=== PATIENT | female | born 1995 | race Caucasian/White ===

== ENCOUNTER 2017-03-17 00:29 | Inpatient (IN) | payer BC, OTHER ==
[~2017-03-17] VITALS: Ht 162.6 cm; Wt 72.6 kg
--- NOTE | 2017-03-17 00:45 | NUR ---
Intake Assessment Assessment done at intake office. Patient is alert & oriented to name, place & situation. Pt is ambulatory with a steady gait. Speech is clear and audible. Pt is disheveled appears slightly anxious and is cooperative during interviews. Vitals noted B/P 130/78, PA 102, RR 18, Temp 98.1, O2Sat 98%. Pt is here for medically supervised withdrawal from polysubstance use. No seizure history noted. Pt denies any food and drug allergies. Pt did not bring any home medications. Explained to pt unit protocols. Pt verbalized understanding.
[2017-03-17 01:00] VITALS: BP 130/78
[2017-03-17] MEDS ORDERED: MAG HYDROX/AL HYDROX/SIMETH 30 ML LIQUID UDC PO PRN (01:00)
[2017-03-17] MEDS ORDERED: BUPRENORPHINE HCL 2 MG TAB.SUBL SL PRN (01:00)
[2017-03-17] MEDS ORDERED: LORAZEPAM 1 MG TABLET PO PRN ×2 (01:00)
[2017-03-17] MEDS ORDERED: DICYCLOMINE HCL 20 MG TABLET PO PRN (01:00)
[2017-03-17] MEDS ORDERED: LOPERAMIDE HCL 2 MG CAPSULE PO PRN ×2 (01:00)
[2017-03-17] MEDS ORDERED: MIRALAX 17 GM POWD.PACK PO PRN (01:00)
[2017-03-17] MEDS ORDERED: ACETAMINOPHEN 325 MG TABLET PO PRN (01:00)
[2017-03-17] MEDS ORDERED: CLONIDINE HCL 0.1 MG TABLET PO PRN (01:00)
[2017-03-17] MEDS ORDERED: ONDANSETRON 4 MG/2 ML VIAL IM PRN (01:00)
[2017-03-17] MEDS ORDERED: THIAMINE HCL 200 MG/2 ML VIAL IM ONE (01:00)
[2017-03-17] MEDS ORDERED: LORAZEPAM 2 MG/1 ML VIAL IM PRN (01:00)
[2017-03-17] MEDS ORDERED: MAGNESIUM HYDROXIDE 30 ML LIQUID UDC PO PRN (01:00)
[2017-03-17] MEDS ORDERED: METHOCARBAMOL 750 MG TABLET PO PRN (01:00)
[2017-03-17] MEDS ORDERED: IBUPROFEN 600 MG TABLET PO PRN (01:00)
[2017-03-17] MEDS ORDERED: diphenhydrAMINE 50 MG CAPSULE PO PRN (01:00)
[2017-03-17] MEDS ORDERED: ONDANSETRON ODT 4 MG TAB.RAPDIS SL PRN (01:00)
--- NOTE | 2017-03-17 01:00 | NUR ---
ADMISSION NOTE: Patient is a 21 y.o female admitted at [facility] Unit at approximately 0058 am of 03/17/17 for medically supervised withdrawal from polysubstance use. Body search done and skin check performed, no contraband found. Skin noted to be intact. Pt is 5'4" tall and weighs 160 lbs in a standing scale. Pt is cooperative during assessment. Patient is oriented to floor unit and room. Patient follows a regular diet at home with no known food and drug allergies. Pt wishes to be full Code. Patient is alert & oriented to name, place & situation. Pt unsure of the date. Pt is ambulatory with a steady gait. Speech is clear and audible. Pt is disheveled appears anxious but cooperative during interview. No shortness of breath noted. Respiration even & unlabored. Abdomen soft & non-distended. Bowel sounds active in all four quadrants. No nausea/vomiting noted. Patient presented with complains of abdominal cramps, mild headache, stuffy nose, anxiety & agitation. COWS 6 CIWA 8 noted. Patient noted with past medical history of PTSD, Bipolar D/O, Anxiety & Depression. Pt denies any hx of seizures. Pt reported suicide attempt 3 years ago. Per pt, she took a bunch of seroquel medications and overdosed. Pt currently denies SI/HI. Pt was able to provide urine sample for drug screen upon admission and is voiding clear yellow urine with no problems. Substance use: 1. ETOH- Pt has been drinking since 15 years old. Pt drinks 4-6 beers daily for 1 month. Her last drink was a shot of whiskey on the day of admission. 2. Xanax- Pt started taking Xanax when she was 18 years old. Pt is taking 8 mg of Xanax daily for 1 month. Last use was 3 days ago. 3. Heroin- Pt started using Heroin intravenously when she was 18 years old. Pt uses unspecified amount of heroin for a week. Last use was 4 days ago. 4. Omali- Pt started using Omali intravenously when a couple of months ago. Pt uses 1gram daily for a week. Last use was 3 days ago. 5. Meth- Pt started using Meth intravenously for the 1st time. Pt uses unspecified amount of meth for a week. Last use was 4 days ago. 6. Cocaine- Pt started using Cocaine intravenously when she was 18 years old. Pt uses 1-2 grams of cocaine for a month. Last use was on the day of admission. 7. marijuana- Pt smokes marijuana intermittently on a non-daily basis. Pt last use was a month ago. Patient denies being hospitalized in the last 30 days. Patient reports his longest period of sobriety was for 3 years and relapsed a month ago. Patient reports symptoms when he does not use "tremors, anxiety, loss of appetite, nausea. stuffy nose, diarrhea, headache & agitation. Patient smokes 20 cigarettes daily. Patient agreed to received flu and pneumonia vaccine. Patient does not have a PCP. Urine drug screen came back positive for Opiates, Meth, Cocaine & Marijuana. Alcohol level is 0.00%. Fall & Seizure precautions are in place. All needs attended & met. Safety precautions are in place. Bed locked in lowest position. Both side rails padded & up. Call light within pt's reach. Will continue to monitor.
[2017-03-17 01:13] LABS: *URINE HCG, QUAL NEGATIVE (NEGATIVE)
[2017-03-17 01:22] LABS: BASOPHILS # (AUTO) 0.1 K/uL (0.0-8.0); BASOPHILS % (AUTO) 0.7 % (0.0-2.0); EOSINOPHILS # (AUTO) 0.1 K/uL (0.0-0.7); EOSINOPHILS % (AUTO) 0.8 % (0.0-7.0); HEMATOCRIT 43.8 % (31.2-41.9); HEMOGLOBIN 15.2 g/dL (10.9-14.3); LYMPHOCYTES # (AUTO) 2.7 K/uL (20.0-40.0); LYMPHOCYTES % (AUTO) 26.3 % (20.5-51.5); MEAN CORPUSCULAR HEMOGLOBIN 33.1 uug (24.7-32.8); MEAN CORPUSCULAR HGB CONC 35 g/dL (32.3-35.6); MEAN CORPUSCULAR VOLUME 95.2 fL (75.5-95.3); MONOCYTES # (AUTO) 0.6 K/uL (2.0-10.0); MONOCYTES % (AUTO) 6.2 % (0.0-11.0); NEUTROPHILS # (AUTO) 6.6 K/uL (1.8-8.9); PLATELET COUNT (AUTO) 362 K/uL (179-408); WHITE BLOOD COUNT (AUTO) 10.1 K/uL (3.8-11.8)
[2017-03-17 01:31] LABS: *AMPHETAMINE, URINE POSITIVE (NEGATIVE); *BARBITURATE, URINE NEGATIVE (NEGATIVE); *CANNABINOID, URINE POSITIVE (NEGATIVE); *COCCAINE, URINE POSITIVE (NEGATIVE); *OPIATE, URINE POSITIVE (NEGATIVE); *PHENCYCLIDINE SCREEN,URINE NEGATIVE (NEGATIVE)
[2017-03-17 01:34] LABS: ETHANOL < 3 MG/DL (0-0)
[2017-03-17 01:36] LABS: ALANINE AMINOTRANSFERASE 29 U/L (14-59); ALKALINE PHOSPHATASE 66 U/L (50-136); AMYLASE 26 U/L (25-115); ASPARTATE AMINOTRANSFERASE 17 U/L (15-37); BILIRUBIN,TOTAL 0.3 mg/dL (0.2-1.0); CARBON DIOXIDE 31 mmol/L (21-32); CHLORIDE 101 mmol/L (98-107); CREATININE 0.8 mg/dL (0.6-1.3); GLUCOSE 103 mg/dL (74-106); LIPASE 90 U/L (73-393); MAGNESIUM 1.9 mg/dL (1.8-2.4); TOTAL PROTEIN, SERUM 7.6 g/dL (6.4-8.2); UREA NITROGEN, BLOOD 8 mg/dL (7-18)
[2017-03-17 01:47] LABS: THYROID STIMULATING HORMONE 0.088 mIU/mL (0.358-3.740)
--- NOTE | 2017-03-17 02:00 | NUR ---
PRN Ativan, Motrin & Bentyl Patient presented with anxiety, agitation, mild headache & abdominal cramping. COWS 6 CIWA 8 noted. PRN Ativan 1mg, Motrin, & Bentyl administered as ordered. Will monitor for effectiveness of medication.
--- NOTE | 2017-03-17 03:00 | NUR ---
PRN Reassessment Patient asleep in bed and appears calm and comfortable. No facial grimacing noted at this time. Safety measures in place. Will continue to monitor patient.
[2017-03-17 04:00] VITALS: BP 100/65
[2017-03-17] MEDS ORDERED: POTASSIUM CHLORIDE 20 MEQ TAB.PRT.SR PO ONE ×2 (04:00→09:00)
--- NOTE | 2017-03-17 07:28 | NUR ---
End of Shift Note: Pt admitted this morning for withdrawal from polysubstance use. Pt has no taper yet. Pt presented with abdominal cramping, anxiety & headache. COWS 6 CIWA 8 noted. PRN Ativan, Bentyl & Motrin administered as ordered and were effective. Pt still asleep at this time with no s/s of distress noted. Pt slept for a total of 3 hours. Fluid intake: 855ml. Voided 1x with no bowel movement. All needs attended. Safety measures in place. Will endorse to day shift nurse.
[2017-03-17] MEDS ORDERED: GABA-534 PO (07:35)
[2017-03-17] MEDS ORDERED: QUET100T PO (07:35)
[2017-03-17] MEDS ORDERED: TOPI100T PO (07:35)
[2017-03-17 08:00] VITALS: BP 103/62
[2017-03-17] MEDS: THIAMINE HCL 100 MG TABLET PO SCH (09:11)
[2017-03-17] MEDS: FOLIC ACID 1 MG TABLET PO SCH (09:11)
[2017-03-17] MEDS: MULTIVITAMINS,THERAPEUTIC TABLET PO SCH (09:11)
[2017-03-17] MEDS ORDERED: TETR-62 OP (10:49)
[2017-03-17] MEDS ORDERED: ACET-73 PO (10:49)
[2017-03-17] MEDS ORDERED: IBUP200C5 PO (10:49)
[2017-03-17] MEDS ORDERED: NICOTINE 14 MG/24HR PATCH TD PRN (11:30)
[2017-03-17] MEDS ORDERED: NICOTINE POLACRILEX 4 MG GUM-PK OF TEN BC PRN (11:30)
[2017-03-17] MEDS ORDERED: [UNRECOGNIZED DRUG - OTHER] EACHEYE PRN (11:30)
[2017-03-17 12:00] VITALS: BP 124/79
[2017-03-17] MEDS ORDERED: PATIENT MAY USE OWN MED- MD OK PO SCH (13:00)
[2017-03-17] MEDS: GABAPENTIN 300 MG CAPSULE PO SCH ×3 (13:19→22:03)
[2017-03-17] MEDS: LORAZEPAM 1 MG TABLET PO SCH ×3 (13:19→22:03)
[2017-03-17 16:00] VITALS: BP 137/79
--- NOTE | 2017-03-17 18:47 | NUR ---
patient a little anxious in am after taking meds patient stated she felt better and had a shower out of bed and attended some groups, pt stated she needed clothes she left home with only which she came incontinue to monitor for safety
--- NOTE | 2017-03-17 19:15 | NUR ---
Start of Shift Note: Received patient sitting in bed. Patient is alert & oriented to name, time, place and situation. Patient is ambulatory with a steady gait. Pt is disheveled and unkempt. Encourage pt to maintain personal hygiene. Pt is anxious and upset about phonecall made in day shift. Pt encourage to verbalized feelings. Pt appears flushed and noted with stuffy nose, restlessness and fine tremors . Patient continues on his Ativan taper and tolerating well. Pt reports medication to be effective in controlling withdrawal symptoms. No PRN medications received during day shift. Pt educated current plan of care for the night and medication regimen. Pt encourage increase fluid intake. Safety measures in place. Will continue to monitor patient.
[2017-03-17 20:00] VITALS: BP 125/85
[2017-03-17] MEDS: QUETIAPINE FUMARATE 100 MG TABLET PO SCH (22:04)
[2017-03-17] MEDS: TOPIRAMATE 100 MG TABLET PO SCH (22:04)
[2017-03-18] VITALS: BP 137/85
--- NOTE | 2017-03-18 07:00 | NUR ---
End of Shift Note: Patient continues on her Ativan taper and tolerating well. No adverse reactions noted. Pt reports clammy skin, fine tremors, anxiety & agitation. No PRN medications received during my shift. Pt reports medication to be effective in controlling withdrawal symptoms. Last COWS 6 CIWA is 10. Pt remained compliant with medications and treatment. Continue to closely monitor signs and symptoms of withdrawal. Vitals noted WNL. Pt still asleep at this time. Pt slept for a total of 8 hours. Fluid intake: 1535ml. Voided 3x with no loose bowel movement during my shift. Will continue to monitor loose BM. All needs attended. Safety measures in place. Will endorse to day shift nurse.
--- NOTE | 2017-03-18 07:30 | NUR ---
START OF SHIFT PT IS A/OX4, RESPIRATIONS EVEN AND UNLABORED. PT HAS A FLAT AFFECT, APPEARS DISHEVELED, WITHDRAWN, ANXIOUS AND AGITATED. PT REPORTS HAVING ANXIETY, RESTLESSNESS, SWEATING, BODY ACHES. FINE TREMORS ARE FELT. ENCOURAGED PT TO INCREASE FLUIDS TO FACILITATE IN DETOX. SIDE RAILS UPX2, BED IN LOWEST POSITION. CALL LIGHT WITHIN REACH. WILL CONTINUE TO MONITOR.
[2017-03-18 08:00] VITALS: BP 97/63
[2017-03-18] MEDS: FOLIC ACID 1 MG TABLET PO SCH (08:55)
[2017-03-18] MEDS: GABAPENTIN 300 MG CAPSULE PO SCH ×4 (08:55→21:57)
[2017-03-18] MEDS: THIAMINE HCL 100 MG TABLET PO SCH (08:55)
[2017-03-18] MEDS: LORAZEPAM 1 MG TABLET PO SCH ×3 (08:55→16:32)
[2017-03-18] MEDS: MULTIVITAMINS,THERAPEUTIC TABLET PO SCH (08:55)
[2017-03-18] MEDS ORDERED: TUBERCULIN,PURIF.PROT.DERIV. 5 TU/0.1 ML TEST ID ONE (09:00)
--- NOTE | 2017-03-18 10:35 | NUR ---
prompted client to attend groups today. Client thinking about this.
[2017-03-18 12:00] VITALS: BP 99/61
[2017-03-18 13:17] LABS: HEPATITIS B SURFACE AG Negative (Negative)
[2017-03-18 17:00] VITALS: BP 128/82
--- NOTE | 2017-03-18 19:15 | NUR ---
Start of Shift Note: Received patient lying in bed with eyes close but easily arousable. Patient is alert & oriented x4. Patient is ambulatory with a steady gait. Pt is disheveled and unkempt. Encourage pt to maintain personal hygiene. Pt appears flushed and noted with stuffy nose, restlessness, anxiety, agitation and fine tremors. Patient continues on his Ativan taper and tolerating well. Pt reports medication to be effective in controlling withdrawal symptoms. No PRN medications received during day shift. Pt attended one of the groups during the day will continue to encourage to attend all groups to learn coping skills and prevent relapse. Pt educated current plan of care for the night and medication regimen. Pt encourage increase fluid intake. Safety measures in place. Will continue to monitor patient.
--- NOTE | 2017-03-18 19:34 | NUR ---
END OF SHIFT PT LAST COWS 6 AND CIWA 9 AT 1600. PT APPEARS DISHEVELED, WITHDRAWN, ANXIOUS AND AGITATED. ALL SAFETY MEASURES IN PLACE. CALL LIGHT WITHIN REACH. WILL GIVE ALL ENDORSEMENT AND PERTINENT INFORMATION TO SUPERVISOR OPEN HEARTH STOCKYARD NURSE.
[2017-03-18 20:00] VITALS: BP 107/68
[2017-03-18] MEDS ORDERED: LORAZEPAM 1 MG TABLET PO SCH (21:00)
[2017-03-18] MEDS: TOPIRAMATE 100 MG TABLET PO SCH (21:57)
[2017-03-18] MEDS: QUETIAPINE FUMARATE 100 MG TABLET PO SCH (21:57)
--- NOTE | 2017-03-19 | NUR ---
Vitals/CIWA deferred Patient refused vitals at this time. Patient asleep in bed and appears comfortable. Safety measures in place. Will continue to monitor patient.
--- NOTE | 2017-03-19 07:24 | NUR ---
End of Shift Note: Patient continues on her Ativan taper and tolerating well. No adverse reactions noted. Pt reports clammy skin, fine tremors, anxiety & agitation. No PRN medications received during my shift. Pt reports medication to be effective in controlling withdrawal symptoms. Last COWS 7 CIWA is 8. Pt remained compliant with medications and treatment. Continue to closely monitor signs and symptoms of withdrawal. Vitals noted WNL. Pt still asleep at this time. Pt slept for a total of 7 hours. Fluid intake: 1000ml. Voided 2x with 1x bowel movement during my shift. All needs attended. Safety measures in place. Will endorse to day shift nurse.
--- NOTE | 2017-03-19 08:00 | NUR ---
START OF SHIFT RECEIVED PT A/O X4, RESPIRATIONS EVEN AND UNLABORED. PT APPEARS DISHEVELED, DISPLAYS AGITATION, ANHEDONIA, DEPRESSION, AND DYSPHORIA. PT REPORTS ANXIETY, RESTLESSNESS, DIAPHORESIS. TREMORS ARE SEEN. ENCOURAGED PT TO INCREASE FLUIDS TO PROMOTE HYDRATION. SIDE RAILS UP X2, BED IS IN LOWEST POSITION. CALL LIGHT WITHIN REACH. WILL CONTINUE TO MONITOR.
[2017-03-19 08:27] LABS: CREATININE 0.7 mg/dL (0.6-1.3); MAGNESIUM 2.2 mg/dL (1.8-2.4); POTASSIUM 4.2 mmol/L (3.5-5.1)
[2017-03-19 08:41] LABS: THYROID STIMULATING HORMONE 0.123 mIU/mL (0.358-3.740)
[2017-03-19 09:00] VITALS: BP 96/62
[2017-03-19] MEDS ORDERED: LORAZEPAM 1 MG TABLET PO SCH ×2 (09:00→21:00)
[2017-03-19] MEDS ORDERED: INFLUENZA VACCINE 2017-2018 0.5 ML DISP.SYRIN IM ONE (09:00)
[2017-03-19] MEDS ORDERED: PNEUMOCOCCAL 23-VAL P-SAC VAC 0.5 ML VIAL IM ONE (09:00)
[2017-03-19] MEDS: FOLIC ACID 1 MG TABLET PO SCH (09:40)
[2017-03-19] MEDS: THIAMINE HCL 100 MG TABLET PO SCH (09:40)
[2017-03-19] MEDS: GABAPENTIN 300 MG CAPSULE PO SCH ×4 (09:40→21:05)
[2017-03-19] MEDS: MULTIVITAMINS,THERAPEUTIC TABLET PO SCH (09:40)
[2017-03-19 12:00] VITALS: BP 115/77
[2017-03-19 16:00] VITALS: BP 127/81
--- NOTE | 2017-03-19 19:30 | NUR ---
START OF SHIFT Patient is a 21 y/o female admitted for medically supervised withdrawal from polysubstance use.Pt received resting in bed;she is A/A/O X 4,appears to be withdrawn; mood is sad and depressed.Pt continues on Ativan taper as ordered and is tolerating well; no adverse reactions noted.Last CIWA was 8. Breathing is even and non labored, no c/o pain noted. PO fluids encouraged as tolerated. All safety measures in place per hospital policy,call light within reach,will continue to monitor.
--- NOTE | 2017-03-19 19:34 | NUR ---
END OF SHIFT LAST COWS 6, CIWA 8 AT 1600. PT ATTENDED GROUPS TODAY AND COMPLIANT WITH THE THERAPEUTIC PLAN. WILL GIVE ALL PERTINENT INFO AND ENDORSEMENT TO RECTANGULAR TANK COOPER NURSE.
[2017-03-19 20:00] VITALS: BP 115/63
[2017-03-19] MEDS: QUETIAPINE FUMARATE 100 MG TABLET PO SCH (21:00)
[2017-03-19] MEDS: TOPIRAMATE 100 MG TABLET PO SCH (21:06)
--- NOTE | 2017-03-19 21:10 | NUR ---
MED REFUSAL PT REFUSED TO TAKE SEROQUEL 150 MG ORDERED,STATED "IT MAKES ME TOO SLEEPY".SHE AGREED TO TAKE ONLY 100 MG OF SEROQUEL.
[2017-03-20] VITALS: BP 91/52
--- NOTE | 2017-03-20 04:00 | NUR ---
Vitals refused/CIWA deferred Patient refused v/s at this time. Patient is in bed and appears comfortable, no s/s of distress noted.Safety measures in place. Will continue to monitor patient.
--- NOTE | 2017-03-20 07:40 | NUR ---
START OF SHIFT RECEIVED PT A/O X4, RESPIRATIONS EVEN AND UNLABORED. PT APPEARS DISHEVELED AND HAS DIRTY FINGERNAILS. PT REPORTS BEING VERY TIRED TODAY. ENCOURAGED PT TO PARTICIPATE IN GROUP ACTIVITIES TO DEVELOPE COPING SKILLS AND ALLEVIATE ANXIETY. SIDE RAILS UP X2, BED IS IN LOWEST POSITION. CALL LIGHT WITHIN REACH. WILL CONTINUE TO MONITOR.
--- NOTE | 2017-03-20 07:40 | NUR ---
END OF SHIFT Patient is a 21 y/o female admitted for medically supervised withdrawal from polysubstance use.Pt received resting in bed;she is A/A/O X 4,appears to be withdrawn; mood is sad and depressed, keeps to herself, no self disclosure noted.Pt continues on Ativan taper as ordered and is tolerating well; no adverse reactions noted.Last CIWA was 2 at midnight. Breathing is even and non labored, no c/o pain noted. PO fluids encouraged as tolerated. No PRN meds given; pt slept 8 hrs,fluid intake was 1049 mls,voided x 3 .All safety measures in place per hospital policy,call light within reach,will continue to monitor.
[2017-03-20 08:00] VITALS: BP 114/68
[2017-03-20] MEDS: FOLIC ACID 1 MG TABLET PO SCH (08:49)
[2017-03-20] MEDS: GABAPENTIN 300 MG CAPSULE PO SCH ×4 (08:49→20:39)
[2017-03-20] MEDS: THIAMINE HCL 100 MG TABLET PO SCH (08:50)
[2017-03-20] MEDS: MULTIVITAMINS,THERAPEUTIC TABLET PO SCH (08:50)
--- NOTE | 2017-03-20 08:50 | NUR ---
PT REFUSED 0900 SCHEDULED ATIVAN 1 MG PO PRN. PT STATED, "I DONT FEEL LIKE I NEED IT." MD AWARE. WILL CONTINUE TO MONITOR.
[2017-03-20] MEDS ORDERED: LORAZEPAM 1 MG TABLET PO SCH ×2 (09:00)
[2017-03-20 12:00] VITALS: BP 115/76
[2017-03-20 16:00] VITALS: BP 114/76
--- NOTE | 2017-03-20 19:33 | NUR ---
END OF SHIFT LAST COWS 4 CIWA 4. PT REFUSED AM ATIVAN TAPER; AWARE. PT VERBALIZED ATIVAN WAS NOT NEEDED AND PT HAS MINIMAL SYMPTOMS. PT HAS ATTENDED GROUPS AND PARTICIPATED IN GROUP ACTIVITIES. PT IS TO BE DISCHARGED TOMORROW. ALL SAFETY MEASURES IN PLACE. WILL GIVE ENDORSEMENT TO POWER OPERATOR NURSE.
--- NOTE | 2017-03-20 19:45 | NUR ---
START OF SHIFT NOTE RECEIVED REPORT FROM DAY SHIFT NURSE. PATIENT ADMITTED FOR ETOH/XANAX /OPIATE WITHDRAWAL. PATIENT IS MEDICALLY CLEARED TO BE DISCHARGE TOMORROW. PATIENT REFUSED ATIVAN AT 0900. PATIENT DID NOT REQUIRE PRN MEDICATION. LAST COWS 4 AND CIWA 4. RECEIVED PATIENT IN BED, WATCHING TV. PATIENT DISHEVELED, PRESSURED SPEECH AND STATES SHE'S READY TO SLEEP. SAFETY MEASURES IN PLACE. CALL LIGHT IN REACH. WILL CONTINUE TO MONITOR.
[2017-03-20 20:00] VITALS: BP 128/81
[2017-03-20] MEDS ORDERED: IBUP-1955 PO (20:14)
[2017-03-20] MEDS ORDERED: DICY20TA28 PO (20:14)
[2017-03-20] MEDS ORDERED: GABA-534 PO (20:14)
[2017-03-20] MEDS ORDERED: METH-406 PO (20:14)
[2017-03-20] MEDS: TOPIRAMATE 100 MG TABLET PO SCH (20:40)
[2017-03-20] MEDS: QUETIAPINE FUMARATE 100 MG TABLET PO SCH (20:40)
--- NOTE | 2017-03-21 | NUR ---
COWS AND CIWA DEFERRED PATIENT SLEEPING. COWS AND CIWA DEFERRED. VS REFUSED. RESPIRATION EVEN AND UNLABORED. WILL CONTINUE TO MONITOR.
--- NOTE | 2017-03-21 04:00 | NUR ---
COWS AND CIWA DEFERRED PATIENT SLEEPING. COWS AND CIWA DEFERRED. VS REFUSED. RESPIRATION EVEN AND UNLABORED. WILL CONTINUE TO MONITOR.
--- NOTE | 2017-03-21 07:24 | NUR ---
END OF SHIFT NOTE PATIENT SLEPT 6 HOURS. FLUID INTAKE 2,296 ML. VOIDED X 2. NO BM. MONITORED THROUGHOUT THE SHIFT. PATIENT IS DISCHARGING TODAY. PATIENT COMPLIANT WITH MEDICATION AND TREAMENT PLAN. MEDICATION GIVEN ORDERED. PATIENT DID NOT REQUIRE PRN MEDICATION. SAFETY MEASURES IN PLACE. CALL LIGHT IN REACH. WILL CONTINUE TO MONITOR. LAST COWS 2 AND CIWA 1.
--- NOTE | 2017-03-21 07:30 | NUR ---
Start of Shift Notes: Received patient in her room. Awake, alert and verbally responsive. Appears anxious due to the discharge. Education provided regarding the discharge with help. Room appears unkempt with linen and clothes thrown on the floor. Empty water bottles noted and used coffee cups on her bedside table. Encouraged good personal hygiene and maintenance of her persaonal space. Patient is a 21 year old female admitted for opiate/BZO/ETOH withdrawal who completed her 5-day Ativan taper. No adverse reactions noted. Last COWS 2/CIWA 1. No PRNs given during the night. Will continue to monitor and discharge patient as ordered.
[2017-03-21 08:00] VITALS: BP 98/50
[2017-03-21] MEDS: THIAMINE HCL 100 MG TABLET PO SCH (08:27)
[2017-03-21] MEDS: MULTIVITAMINS,THERAPEUTIC TABLET PO SCH (08:27)
[2017-03-21] MEDS: GABAPENTIN 300 MG CAPSULE PO SCH (08:27)
[2017-03-21] MEDS: FOLIC ACID 1 MG TABLET PO SCH (08:27)
[2017-03-21] MEDS ORDERED: LORAZEPAM 1 MG TABLET PO SCH (09:00)
--- NOTE | 2017-03-21 09:30 | NUR ---
Dischaged: Patient education provided regarding her discharge instructions. Patient verbalized good understanding of all the teachings. COWS 5/CIWA 5, patient appeared anxious and agitated due to the discharge process. Reassurance provided. All necessary paperwork were signed and dated and placed inside black and blue duffel bag. CASINO MANAGER cabinet checked and cassette checked. Returned all clothing, medications, valuables. Picked up by [facility] to be transported to [facility] in stable condition. Escorted off the unit by CASINO MANAGER.
== END 2017-03-21 09:30 | disposition other institution (70) | DRG 895 ==
LOC: SRC 00:29
PROVIDERS: ADMIT Internal Medicine; ATTEND Internal Medicine
PROC: HZ2ZZZZ Detoxification Services for Substance Abuse Treatment (ICD-10-PCS; principal; 2017-03-17)
PROC: HZ41ZZZ Group Counseling for Substance Abuse Treatment, Behavioral (ICD-10-PCS; principal; 2017-03-17)
PROC: HZ31ZZZ Individual Counseling for Substance Abuse Treatment, Behavioral (ICD-10-PCS; 2017-03-20)
DX: F10.232 Alcohol dependence with withdrawal with perceptual disturbance (principal); R45.851 Suicidal ideations; F14.20 Cocaine dependence, uncomplicated; F15.20 Other stimulant dependence, uncomplicated; F31.63 Bipolar disorder, current episode mixed, severe, without psychotic features; F13.232 Sedative, hypnotic or anxiolytic dependence with withdrawal with perceptual disturbance; Y90.0 Blood alcohol level of less than 20 mg/100 ml; Z86.711 Personal history of pulmonary embolism; F17.210 Nicotine dependence, cigarettes, uncomplicated; Z91.5 Personal history of self-harm; Z91.89 Other specified personal risk factors, not elsewhere classified; F43.10 Post-traumatic stress disorder, unspecified; F90.9 Attention-deficit hyperactivity disorder, unspecified type; Z83.3 Family history of diabetes mellitus; Z81.8 Family history of other mental and behavioral disorders; Z82.49 Family history of ischemic heart disease and other diseases of the circulatory system; Z79.899 Other long term (current) drug therapy; Z91.14 Patient's other noncompliance with medication regimen; E87.6 Hypokalemia; E07.81 Sick-euthyroid syndrome; F12.10 Cannabis abuse, uncomplicated; F11.10 Opioid abuse, uncomplicated; Z83.49 Family history of other endocrine, nutritional and metabolic diseases
CPT/HCPCS: 36415; 70030-TC; 80307; 80324; 80349; 80353; 80361; 83690; 83735; 84443; 84703; 85025; 86592; 86705; 86803; 87340; 87806; G0480

== ENCOUNTER 2017-03-31 10:30 | Emergency (ER) | payer BC, OTHER ==
[~2017-03-31] VITALS: Ht 165.1 cm; Wt 77.1 kg
[~2017-03-31 10:30] MED LIST: ACET-73 PO; DICY20TA28 PO; GABA-534 PO; IBUP-1955 PO; IBUP200C5 PO; METH-406 PO; QUET100T PO; TETR-62 OP; TOPI100T PO
--- NOTE | 2017-03-31 10:50 | NUR ---
LORA RA. PATIENT IS AWAKE AND ALERT BUT SLEEPY. STATES SHE IS NOT HOMELESS BUT WANTS TO "GET CLEAN" FROM DRUGS. I GAVE HER JUICE AND WATER WHICH SHE TOLERATED WELL. SHE STATES SHE DOES METH AND WAS IN REHAB BEFORE.
[2017-03-31 11:43] LABS: BASOPHILS # (AUTO) 0.1 K/uL (0.0-8.0); BASOPHILS % (AUTO) 1.2 % (0.0-2.0); EOSINOPHILS # (AUTO) 0.4 K/uL (0.0-0.7); EOSINOPHILS % (AUTO) 3.5 % (0.0-7.0); HEMATOCRIT 40.9 % (31.2-41.9); HEMOGLOBIN 14.1 g/dL (10.9-14.3); LYMPHOCYTES # (AUTO) 2.8 K/uL (20.0-40.0); LYMPHOCYTES % (AUTO) 26.2 % (20.5-51.5); MEAN CORPUSCULAR HEMOGLOBIN 32.6 uug (24.7-32.8); MEAN CORPUSCULAR HGB CONC 35 g/dL (32.3-35.6); MEAN CORPUSCULAR VOLUME 94.6 fL (75.5-95.3); MONOCYTES # (AUTO) 0.7 K/uL (2.0-10.0); MONOCYTES % (AUTO) 6.3 % (0.0-11.0); NEUTROPHILS # (AUTO) 6.6 K/uL (1.8-8.9); NEUTROPHILS % (AUTO) 62.8 % (38.5-71.5); PLATELET COUNT (AUTO) 326 K/uL (179-408); RED BLOOD CELL COUNT(AUTO) 4.32 MIL/uL (3.63-4.92); WHITE BLOOD COUNT (AUTO) 10.6 K/uL (3.8-11.8)
[2017-03-31 12:04] LABS: CARBON DIOXIDE 26 mmol/L (21-32); CHLORIDE 107 mmol/L (98-107); CREATININE 0.8 mg/dL (0.6-1.3); GLUCOSE 93 mg/dL (74-106); POTASSIUM 3.5 mmol/L (3.5-5.1); UREA NITROGEN, BLOOD 11 mg/dL (7-18)
[2017-03-31 12:11] LABS: ALANINE AMINOTRANSFERASE 27 U/L (14-59); ALKALINE PHOSPHATASE 51 U/L (50-136); ASPARTATE AMINOTRANSFERASE 18 U/L (15-37); BILIRUBIN,DIRECT 0.1 mg/dL (0.0-0.2); BILIRUBIN,TOTAL 0.3 mg/dL (0.2-1.0); TOTAL PROTEIN, SERUM 7.1 g/dL (6.4-8.2)
[2017-03-31 12:18] LABS: ETHANOL < 3 MG/DL (0-0)
--- NOTE | 2017-03-31 14:05 | NUR ---
PATIENT IS SLEEPING BUT AROUSES EASY TO VOICE.
--- NOTE | 2017-03-31 15:32 | NUR ---
PATIENT AMBULATED TO BATHROOM IN STEADY GAIT AND WENT BACK TO THE ROOM AND IS LAYING DOWN.
--- NOTE | 2017-03-31 16:25 | NUR ---
STAFF FROM [facility] WERE HERE SPEAKING TO PATIENT. PATIENT STATED SHE WILL GO TO "[facility]". DR MOHAN NOTIFIED. DC AND FOLLOW UP INSTRUCTIONS GIVEN AND EXPLAINED TO PATIENT WHO STATES HE UNDERSTANDS ALL INSTRUCTIONS.
[2017-03-31 16:44] VITALS: BP 114/77
== END 2017-03-31 16:44 | disposition home or self-care (01) ==
LOC: ER 10:30
DX: F15.10 Other stimulant abuse, uncomplicated (principal); F31.9 Bipolar disorder, unspecified; F41.9 Anxiety disorder, unspecified; F32.9 Major depressive disorder, single episode, unspecified; Z79.1 Long term (current) use of non-steroidal anti-inflammatories (NSAID); Z79.2 Long term (current) use of antibiotics; Z79.899 Other long term (current) drug therapy
CPT/HCPCS: 80048; 80076; 84703; 85025; 99284; A4663; G0480; 36415